=== PATIENT | female | born 1990 | race Two or more races ===

== ENCOUNTER 2020-05-28 01:13 | Emergency (ER) | payer OTHER, SELFPAY ==
[2020-05-28] MEDS ORDERED: Lorazepam 2 MG/ML VIAL ONE (01:29)
== END 2020-05-28 01:47 | disposition home or self-care (01) ==
LOC: NAV ERS 01:13
DX: F41.9 Anxiety disorder, unspecified (principal)
CPT/HCPCS: 96372; 99283; J2060

== ENCOUNTER 2022-10-14 01:17 | Emergency (ER) | payer OTHER ==
[2022-10-14 01:44] LABS: #Basophils 0.1 thou/uL (0.0-0.2); #Eosinphils 0.2 thou/uL (0.0-0.7); #Lymphocytes 2.8 thou/uL (1.20-3.40); #Monocytes 0.6 thou/uL (0.11-0.59); #Neutrophils 4.8 thou/uL (1.40-6.50); %Basophils 0.8 % (0.0-1.0); %Lymphocytes 33.1 % (21.0-51.0); %Monocytes 7.6 % (0.0-10.0); %Neutrophils 56.5 % (42.0-75.0); Hematocrit 37.8 % (36.0-47.0); Hemoglobin 12.2 g/dL (12.0-16.0); Manual Diff?? NO; Mean Corpuscular HGB CONC 32.3 g/dL (32.0-36.0); Mean Corpuscular Hemoglobin 28.5 pg (27.0-31.0); Mean Platelet Volume 7.6 fL (7.4-10.4); Platelet Count 294 10x3/uL (130-400); RBC Distribution Width 11.4 % (11.5-14.5); Red Blood Cell (RBC) Count 4.29 mill/uL (4.20-5.40); White Blood Cell (WBC) Count 8.4 10x3/uL (4.8-10.8)
[2022-10-14 01:58] LABS: Troponin I Less than 0.010 ng/mL (< 0.028)
[2022-10-14 02:09] LABS: ALT (SGPT) 16 U/L (8-55); AST (SGOT) 18 U/L (5-34); Albumin 4.2 g/dL (3.5-5.0); Anion Gap 15 mmol/L (10-20); BUN (Urea Nitrogen) 11 mg/dL (7.0-18.7); Bilirubin, Total 0.5 mg/dL (0.2-1.2); Calc. Creatinine Clearance 0 mL/min (70-130); Calcium 9.8 mg/dL (7.8-10.44); Carbon Dioxide 22 mmol/L (22-29); Chloride 103 mmol/L (98-107); Estimated GFR 91; Globulin 3.4 g/dL (2.4-3.5); Glucose 108 mg/dL (70-105); Lipase 25 U/L (8-78); Potassium 3.3 mmol/L (3.5-5.1); Protein, Total 7.6 g/dL (6.0-8.3); Sodium 137 mmol/L (136-145)
[2022-10-14 02:11] LABS: Alkaline Phosphatase 96 U/L (40-110)
[2022-10-14] MEDS ORDERED: Aspirin Chewable 81 MG TAB ONE (02:55)
[2022-10-14] MEDS ORDERED: Potassium Chloride 20 MEQ TAB ONE (02:55)
[2022-10-14 04:42] LABS: Troponin I Less than 0.010 ng/mL (< 0.028)
== END 2022-10-14 05:06 | disposition home or self-care (01) ==
LOC: NAV ERS 01:17
DX: F41.0 Panic disorder [episodic paroxysmal anxiety] (principal); E86.0 Dehydration
CPT/HCPCS: 71045; 80053; 83690; 84484; 85025; 93005

== ENCOUNTER 2023-12-02 06:21 | Emergency (ER) | payer OTHER ==
[2023-12-02] MEDS ORDERED: Ketorolac Tromethamine 60 MG/2 ML VIAL ONE (06:52)
[2023-12-02] MEDS ORDERED: AMOXicillin 250 MG CAP ONE (06:52)
== END 2023-12-02 06:58 | disposition home or self-care (01) ==
LOC: NAV ERS 06:21
DX: K04.7 Periapical abscess without sinus (principal); R07.89 Other chest pain
CPT/HCPCS: 96372; 99282; J1885

== ENCOUNTER 2024-03-09 13:19 | Emergency (ER) | payer SELFPAY | END 2024-03-09 14:06 | disposition home or self-care (01) | LOC: NAV ERS 13:19 | DX: L03.211 Cellulitis of face (principal); L08.9 Local infection of the skin and subcutaneous tissue, unspecified | CPT/HCPCS: 99283 ==

== ENCOUNTER 2025-02-17 00:38 | Emergency (ER) | payer SELFPAY ==
[2025-02-17 01:27] LABS: Hematocrit 36.3 % (36.0-47.0); Hemoglobin 12.5 g/dL (12.0-16.0); Mean Corpuscular Hemoglobin 28.5 pg (27.0-31.0); Mean Corpuscular Volume 82.6 fl (78.0-98.0); Platelet Count 327 10x3/uL (130-400); Red Blood Cell (RBC) Count 4.39 mill/uL (4.20-5.40); White Blood Cell (WBC) Count 7.3 10x3/uL (4.8-10.8)
[2025-02-17 01:43] LABS: ALT (SGPT) 10 U/L (Less than 34); AST (SGOT) 24 U/L (11-34); Albumin 3.8 g/dL (3.1-4.5); Alkaline Phosphatase 101 U/L (40-110); Anion Gap 15 mmol/L (10-20); BUN (Urea Nitrogen) 11 mg/dL (7.0-18.7); Bilirubin, Total 0.2 mg/dL (0.3-1.2); Calc. Creatinine Clearance 0 mL/min (70-130); Calcium 9.2 mg/dL (7.8-10.44); Carbon Dioxide 23 mmol/L (22-29); Chloride 104 mmol/L (98-107); Globulin 3.5 g/dL (2.4-3.5); Glucose 101 mg/dL (70-105); Potassium 3.9 mmol/L (3.5-5.1); Sodium 138 mmol/L (136-145); Troponin I Less than 0.010 ng/mL (< 0.028)
== END 2025-02-17 02:15 | disposition home or self-care (01) ==
LOC: NAV ERS 00:38
DX: R20.2 Paresthesia of skin (principal)
CPT/HCPCS: 36415; 70450; 80053; 84484; 85025; 93005